=== PATIENT | female | born 1965 | race Caucasian/White ===

== ENCOUNTER 2021-03-27 08:06 | Outpatient (CLI) | payer BC, SELFPAY ==
--- NOTE | ~2021-03-27 | MM_ITS ---
EXAMINATION: MM screening [facility] BI w kennedi HISTORY: Screening mammogram TECHNIQUE: Craniocaudal and mediolateral oblique 3-D tomosynthesis images were obtained and synthetic 2-D images were generated. CAD analysis was submitted and interpreted. COMPARISON: 01/27/2019, 11/20/2017, 11/06/2016 bilateral digital screening mammogram examinations BREAST PARENCHYMAL COMPOSITION: The breasts are almost entirely fatty. FINDINGS: Stable mild asymmetric density in the superolateral right subareolar area, unchanged since 11/06/2016. Occasional bilateral benign calcifications. There is no evidence of suspicious mass, calci fication, or architectural distortion to suggest malignancy in either breast. There has been no suspi cious interval change. IMPRESSION: 1. No mammographic evidence of malignancy. 2. Recommend routine screening mammography in one year. BI-RADS Category 2: Benign finding(s). Reviewed, dictated and finalized at location A.
--- NOTE | ~2021-03-27 | DEXA_ITS ---
Bone Density Report Name: Merary Arreguin Age: 56 Sex: Female Ethnicity: White Date of : 1965 Indication: postmenopausal; hysterectomy; Referring Provider: HARRY, ELANA Johnson Study: Bone densitometry was performed. Exam Date: March 27, 2021 Accession number: [id number] Bone Density: Region BMD T-score Z-score Classification AP Spine (L1-L4) 0.979 -0.6 0.5 Normal Femoral Neck (Left) 0.756 -0.8 0.2 Normal Total Hip (Left) 0.963 0.2 0.9 Normal Total Hip Bilateral Avg 0.901 -0.3 0.3 Normal Femoral Neck (Right) 0.741 -1.0 0.1 Normal Total Hip (Right) 0.837 -0.9 -0.2 Normal World Health Organization criteria for BMD impression classify patients as: Normal (T-score at or above -1.0), Osteopenia (T-score between -1.0 and -2.5), or Osteoporosis (T-score at or below -2.5). 10-year Fracture Risk: FRAX not reported because: All T-scores for Spine Total, Hip Total, Femoral Neck at or above -1.0 Previous Exams: Region Exam Age BMD T-score BMD Change BMD Change Date g/cm2 vs Baseline vs Previous AP Spine(L1-L4) 03/27/2021 56 0.979 -0.6 0.035(3.7%)* 0.035(3.7%)* 11/06/2016 51 0.944 -0.9 Total Hip(Left) 03/27/2021 56 0.963 0.2 -0.064(-6.3%)* -0.064(-6.3%)* 11/06/2016 51 1.027 0.7 Total Hip(Right) 03/27/2021 56 0.837 -0.9 -0.079(-8.6%)* -0.079(-8.6%)* 11/06/2016 51 0.916 -0.2 *Denotes significance at 95% confidence level, LSC for AP Spine = 0.022 g/cm2, LSC for Total Hip = 0.027 g/cm2 Clinical Information Provided by Patient: Has used the following medications: Vitamin D, Calcium Has the following medical conditions: Hysterectomy Patient maximum height was 64.0 Menopause Age: 41 No regular weight bearing exercise Drinks caffeinated beverages Onset of menses at age 13 Number of children 0 Impression: The patient has normal bone mass. The BMD for the Total Hip(Left) decreased, changing by -6.3% since the last DXA exam. The BMD for the Total Hip(Right) decreased, changing by -8.6% since the last DXA exam. Discussion: BONE DENSITY IS ABOVE THE MINIMUM DESIRABLE LEVEL AT ALL SKELETAL SITES TESTED. This patient?s bone mineral density is above the minimum desirable level (T-score -1.0 or better) at all sites measured. The patient should follow a healthful lifestyle (good nutrition with adequate calcium and vitamin D, and appropriate weight-bearing exercise). Follow-Up: Consider repeating this study in 3 to 4 years to reassess this
== END 2021-03-27 08:07 | disposition home or self-care (01) ==
PROVIDERS: PCP Family Medicine; Visit Provider Family Medicine
DX: Z12.31 Encounter for screening mammogram for malignant neoplasm of breast (principal); Z78.0 Asymptomatic menopausal state
CPT/HCPCS: 77063; 77067; 77080

== ENCOUNTER 2022-07-01 07:17 | Outpatient (CLI) | payer BC, SELFPAY ==
--- NOTE | ~2022-07-01 | MM_ITS ---
EXAMINATION: MM screening [facility] BI w kennedi HISTORY: Screening TECHNIQUE: Craniocaudal and mediolateral oblique 3-D tomosynthesis images were obtained and synthetic 2-D images were generated. CAD analysis was submitted and interpreted. COMPARISON: Comparison to multiple prior studies sequentially, with oldest reviewed study dated 09/30. BREAST PARENCHYMAL COMPOSITION: There are scattered areas of fibroglandular density. FINDINGS: There is no evidence of suspicious mass, calcification, or architectural distortion to sugg est malignancy in either breast. There has been no suspicious interval change. IMPRESSION: 1. No mammographic evidence of malignancy. 2. Recommend routine screening mammography in one year. BI-RADS Category 1: Negative Reviewed, dictated and finalized at location A.
== END 2022-07-01 07:18 | disposition home or self-care (01) ==
PROVIDERS: PCP Family Medicine; Visit Provider Family Medicine
DX: Z12.31 Encounter for screening mammogram for malignant neoplasm of breast (principal)
CPT/HCPCS: 77063; 77067

== ENCOUNTER 2023-07-08 14:57 | Outpatient (CLI) | payer BC, SELFPAY ==
--- NOTE | ~2023-07-08 | MM_ITS ---
EXAMINATION: MM screening [facility] BI w kennedi HISTORY: Screening mammogram TECHNIQUE: Craniocaudal and mediolateral oblique 3-D tomosynthesis images were obtained and synthetic 2-D images were generated. CAD analysis was submitted and interpreted. COMPARISON: 07/01/2022, 03/27/2021, 01/27/2019 BREAST PARENCHYMAL COMPOSITION: The breasts are almost entirely fatty. FINDINGS: No suspicious mass, calcification, or architectural distortion are identified in either conchis ast to suggest malignancy. There has been no suspicious interval change. IMPRESSION: 1. No mammographic evidence of malignancy. 2. Recommend routine screening mammography in one year. BI-RADS Category 1: Negative Reviewed, dictated and finalized at location A.
== END 2023-07-08 14:58 | disposition home or self-care (01) ==
LOC: ANHIMG 15:00
PROVIDERS: PCP Family Medicine; Visit Provider Family Medicine
DX: Z12.31 Encounter for screening mammogram for malignant neoplasm of breast (principal)
CPT/HCPCS: 77063; 77067

== ENCOUNTER 2025-06-07 13:04 | Outpatient (CLI) | payer BC, SELFPAY ==
--- NOTE | ~2025-06-07 | DEXA_ITS ---
Bone Density Report Name: SYLVIA LOUIS Age: 60 Sex: Female Ethnicity: White Date of : 1965 Indication: postmenopausal; screening for osteoporosis; hysterectomy; Referring Provider: ELIZABETH, AISLINN Study: Bone densitometry was performed. Exam Date: June 07, 2025 Accession number: [id number] Bone Density: Region BMD T-score Z-score Classification AP Spine(L1-L4) 0.930 -1.1 0.3 Osteopenia Femoral Neck (Left) 0.727 -1.1 0.2 Osteopenia Total Hip (Left) 0.936 0.0 0.9 Normal Femoral Neck (Right) 0.799 -0.4 0.8 Normal Total Hip (Right) 0.903 -0.3 0.6 Normal Total Hip Mean 0.919 -0.2 0.8 Normal World Health Organization criteria for BMD impression classify patients as: Normal (T-score at or above -1.0), Osteopenia (T-score between -1.0 and -2.5), or Osteoporosis (T-score at or below -2.5). 10-year Fracture Risk(1): Major Osteoporotic Fracture 5.9% Hip Fracture 0.3% Reported Risk Factors: [place] (), Neck BMD=0.727, BMI=46.3 (1) FRAX(R) Version 3.08. Fracture probability calculated for an untreated patient. Fracture probability may be lower if the patient has received treatment. Previous Exams: Region Exam Age BMD T-score BMD Change BMD Change Date g/cm2 vs Baseline vs Previous AP Spine (L1-L4) 06/07/2025 60 0.930 -1.1 -0.014 (-1.5%) -0.049 (-5.0%) 03/27/2021 56 0.979 -0.6 0.035 (3.7%)* 0.035 (3.7%)* 11/06/2016 51 0.944 -0.9 Total Hip(Left) 06/07/2025 60 0.936 0.0 -0.091 (-8.8%) -0.027 (-2.8%) 03/27/2021 56 0.963 0.2 -0.064 (-6.3%) -0.064 (-6.3%) 11/06/2016 51 1.027 0.7 Total Hip(Right) 06/07/2025 60 0.903 -0.3 -0.013 (-1.5%) 0.066 (7.9%)* 03/27/2021 56 0.837 -0.9 -0.079 (-8.6%) -0.079 (-8.6%) 11/06/2016 51 0.916 -0.2 *Denotes significance at 95% confidence level, LSC for AP Spine = 0.022 g/cm2, LSC for Total Hip = 0.027 g/cm2 # Denotes dissimilar scan types or analysis methods Clinical Information Provided by Patient: Has used the following medications: Vitamin D, Calcium Has the following medical conditions: Hysterectomy Patient maximum height was 64 Menopause Age: 41 No regular weight bearing exercise Does not regularly consume dairy products Drinks caffeinated beverages Onset of menses at age 14 Number of children 0 Impression: The patient has low bone mass, based on the Total Spine T-score. The patient has an estimated ten-year risk of hip fracture of 0.3% and an estimated ten-year risk of major fracture of 5.9%, based on the WHO FRAX algorithm. No significant bone loss was observed. Discussion: BONE DENSITY IS LOW AT ONE OR MORE SKELETAL SITES. This patient's lowest T-score is low at one or more skeletal sites. It meets the World Health Organization's (WHO) criteria for ?low bone mass? (T-score between -1.0 and -2.5). The patient's 10-year risk of fracture as calculated by FRAX is less than the threshold where pharmacological therapy is recommended by the National Osteoporosis Foundation (NOF). However, all treatment decisions require clinical judgment and consideration of individual patient factors, including patient preferences, comorbidities, previous drug use, risk factors not captured in the FRAX model (e.g., frailty, falls, vitamin D deficiency, increased bone turnover, interval significant decline in bone density) and possible under or overestimation of fracture risk by FRAX. The patient should follow a healthful lifestyle (good nutrition with adequate calcium and vitamin D, and appropriate weight-bearing exercise). Follow-Up: Consider repeating this study in 2 to 3 years to reassess this patient's status, or sooner if there is some new clinical indication. Reported by: GILBERT on 06/07/2025 1:41:00 PM. Reviewed, dictated and finalized at location A.
--- OUTSIDE RECORDS SUMMARY | 2025-06-07 13:11 | XMS_ITS | Referral Summary ---
Author Organization [facility] Address [address] [place] [address] Care Team Providers Care Medical Librarian Name Role Phone Roxi Bell METAL FITTER Primary Care Provider [phone] Encounters Date Type Department Care Team Description 04/26/2025 Orders Only [facility] Internal Medicine at [address] [place] [phone] Warner Mckeon MD 04/25/2025 Orders Only [facility] Internal Medicine at [address] [place] [phone] Warner Mckeon MD 04/21/2025 Orders Only [facility] Internal Medicine at [address] [place] [phone] Warner Mckeon MD 04/13/2025 7:30 AM CDT Office Visit [facility] Internal Medicine at [address] [place] [phone] Roxi Bell, ELISHA Physical exam, annual (Primary Dx); Morbid obesity with BMI of 45.0-49.9, adult (HCC); Encounter for screening for malignant neoplasm of breast, unspecified screening modality; Breast cancer screening by mammogram; Post-menopausal; Acquired hypothyroidism; Screening for diabetes mellitus; Vitamin D deficiency; Mixed hyperlipidemia; Dry skin from Last 3 Months Allergies Active Allergy Reactions Criticality Noted Date Comments Levofloxacin Hives High Reaction: Hives, Penicillins Hives High Reaction: Hives, Sulfa (Sulfonamide Antibiotics) Headache Reaction: Headache, Medications calcium carbonate-vitam in D3 500 mg(1,250mg) -400 unit tablet Take according to [id number]-eat-[id number] r package directions 0 0 8 Active docusate sodium (STOOL SOFTENER) 250 mg capsule Take according to xyky-npr-aefwza r package directions 0 0 8 Active aspirin (ASPIRIN LOW DOSE) 81 mg tablet take 1 Tablet by oral route every day 0 0 4 Active fluticasone (FLONASE) 50 mcg/actuation nasal spray Administer 1 spray into each nostril daily Active diclofenac DR (VOLTAREN) 75 mg EC tablet Take 1 tablet (75 mg total) by mouth 3 Active metoprolol XL (Toprol XL) 50 mg extended release tablet Take 1 tablet (50 mg total) by mouth daily 90 tablet 1 5 Active levothyroxine (Synthroid) 112 mcg tablet Take 1 tablet (112 mcg total) by mouth daily 90 tablet 3 5 Active ezetimibe (Zetia) 10 mg tablet Take 1 tablet (10 mg total) by mouth daily 90 tablet 1 5 Active atorvastatin (LIPITOR) 20 mg tablet Take 1 tablet (20 mg total) by mouth daily 90 tablet 1 5 Active triamcinolone (KENALOG) 0.1 % creamIndication s:Dry skin Apply to affected area 1-2 times daily as needed. Avoid face and groin. 30 g 5 5 04/13/20 26 Active Active Problems Problem Noted Date Diagnosed Date Screening for diabetes mellitus 04/13/2025 Post-menopausal 04/13/2025 Mixed hyperlipidemia 04/13/2025 Vitamin D deficiency 04/13/2025 Coronary artery disease invo lving [place] coronary artery of [place] heart without angina pectoris 03/17/2019 Hx of CABG 03/17/2019 Pleomorphic adenoma of parotid gland 02/23/2019 Morbid obesity with BMI of 45.0-49.9, adult 08/30 Assessment & Plan (04/13/2025 7:33 AM CDT): Discussed the patient's BMI. The BMI is above average. BMI management plan is completed. BMI Follow-up includes: nutrition counseling, exercise counseling and education provided. Assessment & Plan (09/12/2021 3:26 PM CDT): Continue LT4 at current dose. Instructions to patient on taking medication properly : in the morning, on an empty stomach , 1 h part from food and/or other meds. Assessment & Plan (09/18/2020 4:05 PM CDT): Patient has lost over 40 lb Continue working on diet and exercise Assessment & Plan (09/13/2019 3:22 PM CDT): Diet and exercise discussed Assessment & Plan (09/08/2017 3:16 PM CDT): Diet and exercise were discussed. 1200 Calorie diet advised 45-60 min aerobic / resistance exercise most days of the week recommended. 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 No medication changes. Will request lab results. Assessment & Plan (09/18/2020 4:05 PM CDT): Continue levothyroxine at current dose of 112 mcg Importance of taking the medications in the morning, Lantus stomach was discussed Assessment & Plan (09/13/2019 3:22 PM CDT): Continue levothyroxine at current dose Importance of taking the medication the morning and stomach was emphasized Assessment & Plan (09/14/2018 3:26 PM CDT): Stay on current dose of Synthroid Assessment & Plan (09/08/2017 3:16 PM CDT): Check TSH, free T4 prior to next kody Continue levothyroxine at current dose. Instructions to patient on taking medication properly Immunizations Immunization Administration Dates Next Due DTaP 11/30/2005 Influenza, Unspecified 04/13/2025(Deferr ed: Patient Refused),11/30/2023(Deferred: Patient Refused) Social History Tobacco Use Types Packs/Day Years Used Date Smoking Tobacco: Never Smokeless Tobacco: Never Tobacco Cessation:Counseling Given: Not Answered Alcohol Use Standard Drinks/Week Comments No 0 (1 standard drink = 0.6 oz pur e alcohol) AUDIT-C Answer Date Recorded Q1: How often do you have a drink containing alc ohol? Monthly or less 04/13/2025 Q2: How many drinks containi ng alcohol do you have on a typical day when you are drinking? 1 or 2 04/13/2025 Q3: How often do you have si x or more drinks on one occasion? Never 04/13/2025 PHQ-2 Answer Date Recorded PHQ-2 Total Score (If total score is 3 or more points, staff should administer the PHQ-9) 0 04/13/2025 Comments No Sex and Gender Information Value Date Recorded Sex Assigned at Not on file Legal Sex Female 11:58 PM HSE MANAGER Gender Identity Female 09/16/2020 11:56 AM CDT Sexual Orientation Straight 09/16/2020 11 :56 AM CDT Last Filed Vital Signs Vital Sign Reading Time Taken Comments Blood Pressure 136/78 04/13/2025 7:28 AM CDT Pulse 68 04/13/2025 7:28 AM CDT Temperature 36.8 C (98.3 F) 04/13/2025 7:28 AM CDT Respiratory Rate 16 09/12/2021 3:07 PM CDT Oxygen Saturation 96% 04/13/2025 7:28 AM CDT Inhaled Oxygen Concentration - - Weight 123.7 kg (272 lb 9.6 oz) 04/13/2025 7:28 AM CDT Height 162.6 cm (5' 4) 04/13/2025 7:28 AM CDT Body Mass Index 46.79 04/13/2025 7:28 AM CDT Plan of Treatment Not on file Procedures Procedure Name Priority Date/Time Associated Diagnosis Comments T4, FREE Routine 03/15/2025 2:36 PM CDT TSH+FREE T4 Routine 03/15/2025 2:36 PM CDT VITAMIN D 25 HYDROXY Routine 03/15/2025 2:36 PM CDT BMP - BASIC METABOLIC PANEL (7) Routine 03/15/2025 2:35 PM CDT HEMOGLOBIN A1C Routine 03/15/2025 2:34 PM CDT TSH Routine 03/15/2025 Acquired hypothyroidism HM MAMMOGRAPHY Routine 07/08/2023 2:37 PM CDT HM COLONOSCOPY Routine 03/07/2019 2:44 PM CDT from Last 3 Months or Most Recently Relevant to Health Maintenance Results * TSH+Free T4 (03/15/2025 2:36 PM CDT) Blood [facility] Provider MD LAB BLOOD ORDERABLES Danyell l Result * Vitamin D 25 hydroxy (03/15/2025 2:36 PM CDT) SCRIBED 25-OH Vitamin D 34 <20 - >30 ng/mL [facility] Blood Result [facility] Historical Provider LAB BLOOD ORDERABLES Edit ed Result - Final Performing Organization Address City/[facility]/ZIP Co de Phone Number [facility] * T4, free (03/15/2025 2:36 PM CDT) SCRIBED T4, Free 1.5 0.8 - 1.8 mcg/dL [facility] Blood Historical Provider MD LAB BLOOD ORDERABLES Edit ed Result - Final [facility] * BMP - Basic Metabolic Panel (7) (03/15/2025 2:35 PM CDT) Historical Provider MD LAB BLOOD ORDERABLES Edit ed Result - Final [facility] * (ABNORMAL) Hemoglobin A1c (03/15/2025 2:34 PM CDT) SCRIBED Hemoglobin A1c 5.9(A) 4.0 - 5.6 % [facility] Blood Historical Provider MD LAB BLOOD ORDERABLES Edit ed Result - Final [facility] * TSH (03/15/2025) Scribed TSH 1.49 0.40 - 4.50 mcU/mL [facility] Blood 03/15/2025 Roxi Bell NP LAB BLOOD ORDERABLES Edited R esult - Final Performing Organization Address [facility]/ZIP Co de Phone Number [facility] * HM MAMMOGRAPHY (07/08/2023 2:37 PM CDT) Historical Provider HEALTH MAINTENANCE Final Result * HM COLONOSCOPY (03/07/2019 2:44 PM CDT) Historical Provider HEALTH MAINTENANCE Final Result from Last 3 Months or Most Recently Relevant to Health Maintenance Insurance [facility] BLUE ACCESS [place] BLUE ACCESS [place] Care Teams Medical Librarian Relationship Specialty Start Date End Date Roxi Bell NP [address] [place] [address] PCP - General Internal Medicine 04/13/25
--- OUTSIDE RECORDS SUMMARY | 2025-06-07 13:11 | XMS_ITS | Data Portability ---
Author Organization [place] [facility] [employer], Main Office Address [address] [place] [address] Care Team Providers Care [employer] Name Role Phone MATTI MEYER ZACHARY Primary Care Provider [phone] MATTI MEYER ZACHARY Referring Provider Assessment Encounter Date Assessment Date Assessment LastModified by Organization Details LastModified Time 12/07/2023 12/07/2023 By history and exam the patient is noted to have a left index trigger finger. We talked about treatment options today in detail she wants to avoid surgery she has not had treatment we will try a shot of cortisone therefore under sterile conditions I injected the patient's left index finger into the A1 igor site flexor tendon sheath with 2 cc 0.5% bupivacaine and 10 mg of Kenalog. Patient tolerated the procedure well. We will do a course of oral prednisone I will see her back in a month if her symptoms continue will talk further about other treatment options we talked about surgery options but we are going to try conservative measures for a while 1st of course. She voiced understanding agrees above plan she will call for any further problems difficulties or questions. While she is on the oral prednisone she will hold on diclofenac for now. Not available 12/07/2023 10:10:07 10/11/2024 10/11/2024 The patient has 2 trigger fingers of the right hand when his index finger the other is the ring finger. Talked about treatment options today in detail we are going to start with a course of oral prednisone and also shots of cortisone. At her request under sterile conditions I injected the A1 igor sites into the flexor tendon sheaths of the right index and right ring fingers. The patient tolerated procedure well. I used 2 cc 0.5% bupivacaine and 10 mg of Kenalog for each injection. She will take the course of oral prednisone hold on that diclofenac while she is on the prednisone. I will see her back in 6 weeks if necessary if her symptoms continue we could repeat the injections or talk about surgical intervention. She did very well with treatment with her left hand hopefully she will get the same benefit on the right today. She voiced understanding and agreed with the above plan she will call for any further problems difficulties or questions. Not available 10/11/2024 16:04:14 05/15/2025 05/15/2025 The patient has right hand 2nd and 4th trigger fingers in the left hand has 2nd trigger finger as well. She has flexor tenosynovitis of all 3 sites. We talked about treatment options today she wanted proceed with cortisone therefore under sterile conditions I injected the patient's bilateral index fingers and the right ring finger in the office today into the flexor tendon sheath at the A1 igor sites with 2 cc of 0.5% bupivacaine and 10 mg of Kenalog each for a total of 3 injections. The patient tolerated all 3 injections well. We will give her a course of oral prednisone she will hold on her diclofenac while she is on that then resume. We talked about the fact that if this continues the best way to get rid of it completely would be surgical intervention with trigger finger releases all 3 sites. We will see how she does I will see her back as needed if her symptoms continue she will call she voiced understanding and agreed with the above plan. Not available 05/15/2025 10:24:32 Plan of Treatment Reminders Order Date Submit Date Provider Last Modified By Organization Details Last Modified Time Details Appointments Any 5 2024 08:00A EKTA Wilkerson Not available Not available Not available Lab HbA1c (hemoglob in A1c), blood 2023 025 BREANNE Not available 03/16/2025 05:41:58 BMP, serum or plasma 2023 025 BREANNE Not available 02/28/2025 03:03:00 vitamin D, 25-hydrox y, total, serum 2023 025 BREANNE Not available 03/16/2025 05:41:57 BMP, serum or plasma 2023 025 BREANNE Not available 03/16/2025 05:41:52 lipid panel, serum 2023 025 BREANNE Not available 03/16/2025 05:41:51 hepatic function panel, serum 2023 025 BREANNE Not available 03/16/2025 05:41:53 TSH, serum or plasma 2023 024 BREANNE Not available 03/15/2024 10:55:36 T4, free, serum 2023 024 BREANNE Not available 03/15/2024 10:55:35 TSH, serum or plasma 2023 025 BREANNE Not available 03/16/2025 05:41:56 T4, free, serum 2023 025 BREANNE Not available 03/16/2025 05:41:55 Referral None recorded. Procedures injection /aspirati on joint/bur sa (PROC) 2024 025 [email or web address] In-Office Order, Internal Use Only DO Not Attach Compendium DO Not Attach Compendium, Do Not Delete/merge, [id number] 05/15/2025 09:35:40 injection /aspirati on joint/bur sa (PROC) 2024 025 [email or web address] In-Office Order, Internal Use Only DO Not Attach Compendium DO Not Attach Compendium, Do Not Delete/merge, [id number] 05/15/2025 09:35:40 injection /aspirati on joint/bur sa (PROC) 2024 025 [email or web address] In-Office Order, Internal Use Only DO Not Attach Compendium DO Not Attach Compendium, Do Not Delete/merge, 05/15/2025 09:35:40 injection /aspirati on joint/bur sa (PROC) 2023 024 [email or web address] In-Office Order, Internal Use Only DO Not Attach Compendium DO Not Attach Compendium, Do Not Delete/merge, [id number] 10/11/2024 15:54:34 injection /aspirati on joint/bur sa (PROC) 2023 024 [email or web address] In-Office Order, Internal Use Only DO Not Attach Compendium DO Not Attach Compendium, Do Not Delete/merge, [id number] 10/11/2024 15:54:35 injection /aspirati on joint/bur sa (PROC) 2023 024 In-Office Order, Internal Use Only DO Not Attach Compendium DO Not Attach Compendium, Do Not Delete/merge, [id number] 12/07/2023 10:08:29 Surgeries None recorded. Imaging XR, hand 2024 025 [facility] [place], [address], [place], [address], 05/15/2025 10:25:14 XR, hand 2023 024 [facility] [place], [address], [place], [address], 10/11/2024 16:04:56 XR, hand 2023 024 [facility] [place], [address], [place], [address], 12/07/2023 11:51:52 Medication Orders bupivacai ne HCl 0.5 % (5 mg/mL) injection solution 2024 025 [facility], [address] [place], [address], 05/15/2025 10:18:14 Kenalog 10 mg/mL suspensio n for injection 2024 025 [facility], [address] [place], [address], 05/15/2025 10:18:14 bupivacai ne HCl 0.5 % (5 mg/mL) injection solution [address] [place] [address]/Pharmacy #2510, [address] [place] [address], [id number], 05/15/2025 10:18:14 Kenalog 10 mg/mL suspensio n for injection [address] [place] [address]/Pharmacy #2510, [address] [place] [address], [address], 05/15/2025 10:18:14 prednison e 10 mg tablets in a dose pack [address] [place] [address]/Pharmacy #2510, [address] [place] [address], [id number], 05/15/2025 10:18:14 bupivacai ne HCl 0.5 % (5 mg/mL) injection solution [address] [place] [address]/Pharmacy #2510, [address] [place] [address], [address], 05/15/2025 10:18:14 Kenalog 10 mg/mL suspensio n for injection [address] [place] [address]/Pharmacy #2510, [address] [place] [address], [id number], 05/15/2025 10:18:14 neomycin- polymyxin -dexameth 3.5 mg/mL-10, 000 unit/mL-0 .1% eye drops 2024 025 [email or web address] [facility], [address] [place] [address], [address], 05/15/2025 09:25:12 Zithromax Z-Brooks 250 mg tablet 2024 025 BREANNE [facility]10, [address] [place] [address], [id number], 12/29/2024 17:07:52 bupivacai ne HCl 0.5 % (5 mg/mL) injection solution 2023 [facility], [address] [place] [address], [id number], 05/15/2025 09:24:49 Kenalog 10 mg/mL suspensio n for injection [address]/Pharmacy #2510, [address] [place] [address], [address], 05/15/2025 09:24:55 bupivacai ne HCl 0.5 % (5 mg/mL) injection solution [address]/Pharmacy #2510, [address] [place] [address], [address], 05/15/2025 09:24:49 Kenalog 10 mg/mL suspensio n for injection [address]/Pharmacy #2510, [address] [place] [address], [address], 05/15/2025 09:24:55 prednison e 10 mg tablets in a dose pack [address]/Pharmacy #2510, [address] [place] [address], [address], 05/15/2025 09:25:33 bupivacai ne HCl 0.5 % (5 mg/mL) injection solution [address]/Pharmacy #2510, [address] [place] [address], [address], 05/15/2025 09:24:49 Kenalog 10 mg/mL suspensio n for injection 2023 [email or web address] [address] [place] [address], [address], 05/15/2025 09:24:55 prednison e 10 mg tablets in a dose pack 2023 024 [email or web address] [facility]4918, [address] [place], [address], 05/15/2025 09:25:33 Patient TargetsNo targets recorded. Patient InstructionsNo instructions recorded. Reason for Referral None Reported. Results Created Date Observation Date Name Description Value Unit Range Abnormal Flag Note LastModifiedBy Organization Detail LastModifiedTime 01/12/20 24 01/13/2024 LIPID PANEL , STAND DIANA cholesterol, total 173 mg/dL <200 normal Not Available [address], [address], 01/13/2024 03:23:22 01/12/20 24 01/13/2024 LIPID PANEL , STAND DIANA HDL cholesterol 55 mg/dL > or = 50 normal Not Available [address], [address], 01/13/2024 03:23:22 01/12/20 24 01/13/2024 LIPID PANEL , STAND DIANA triglyceride s 183 mg/dL <150 high Not Available [employer] [address], [address], 01/13/2024 03:23:22 01/12/20 24 01/13/2024 LIPID PANEL , STAND DIANA LDL-choleste rol 90 mg/dL _(wilber c) normal Refer ence range : <100 Zain able range <100 mg/dL for prima ry preve ntion ; <70 mg/dL for patie nts with CHD or diabe tic patie nts with > or = 2 CHD risk facto rs. LDL-C is now calcu lated using the Holly n-Hop romina syed, which is a valid ated novel william moffett accur acy than the [employer] [place] equat ion in the estim ation of LDL-C . Holly syed SS et al. FRANCISCO. 2013; 310(1 9): 2061- 2068 (http ://ed ucati on.Qu estDi agnos tics. com/f aq/FA Q164) Not Available [address] [place], [address], 01/13/2024 03:23:22 01/12/20 24 01/13/2024 LIPID PANEL , STAND DIANA chol/HDLC ratio 3.1 (calc ) <5.0 normal Not Available [address], [address], 01/13/2024 03:23:22 01/12/20 24 01/13/2024 LIPID PANEL , STAND DIANA non HDL cholesterol 118 mg/dL _(wilber c) <130 normal For patie nts with diabe juan plus 1 major ASCVD risk facto r, treat ing to a non-H DL-C goal of <100 mg/dL (LDL- C of <70 mg/dL ) is consi dered a thera peuti c optio n. Not Available [address], [address], 01/13/2024 03:23:22 01/12/20 24 01/13/2024 BASIC METAB OLIC PANEL glucose 92 mg/dL 65-99 normal Fasti ng refer ence inter fish Not Available [address], [address], 01/13/2024 03:23:22 01/12/20 24 01/13/2024 BASIC METAB OLIC PANEL urea nitrogen (BUN) 15 mg/dL 7-25 normal Not Available [address], [address], 01/13/2024 03:23:22 01/12/20 24 01/13/2024 BASIC METAB OLIC PANEL creatinine 0.93 mg/dL 0.50-1 .03 normal Not Available [address] [address] [place], [address], 01/13/2024 03:23:22 01/12/20 24 01/13/2024 BASIC METAB OLIC PANEL eGFR 71 mL/mi n/1.7 3m2 > or = 60 normal Not Available [address] [place], [address], 01/13/2024 03:23:22 01/12/20 24 01/13/2024 BASIC METAB OLIC PANEL BUN/creatini ne ratio SEE NOTE: (calc ) 6-22 Not Repor zaina: BUN and Creat inine are withi n refer ence range . Not Available [address] [place], [address], 01/13/2024 03:23:22 01/12/20 24 01/13/2024 BASIC METAB OLIC PANEL sodium 140 mmol/ L 135-14 6 normal Not Available [address] [address] [place], [address], 01/13/2024 03:23:22 01/12/20 24 01/13/2024 BASIC METAB OLIC PANEL potassium 4.3 mmol/ L 3.5-5. 3 normal Not Available [address] [address] [place], [address], 01/13/2024 03:23:22 01/12/20 24 01/13/2024 BASIC METAB OLIC PANEL chloride 105 mmol/ L 98-110 normal Not Available [address] [address] [place], [address], 01/13/2024 03:23:22 01/12/20 24 01/13/2024 BASIC METAB OLIC PANEL carbon dioxide 30 mmol/ L 20-32 normal Not Available [address] [address] [place], [address], 01/13/2024 03:23:22 01/12/20 24 01/13/2024 BASIC METAB OLIC PANEL calcium 9.3 mg/dL 8.6-10 .4 normal Not Available [address] [address] [place], [address], 01/13/2024 03:23:22 01/12/20 24 01/13/2024 HEPAT IC FUNCT ION PANEL protein, total 6.1 g/dL 6.1-8. 1 normal Not Available [address], [address], 01/13/2024 03:23:23 01/12/20 24 01/13/2024 HEPAT IC FUNCT ION PANEL albumin 3.7 g/dL 3.6-5. 1 normal Not Available [address], [address], 01/13/2024 03:23:23 01/12/20 24 01/13/2024 HEPAT IC FUNCT ION PANEL globulin 2.4 g/dL_ (calc ) 1.9-3. 7 normal Not Available [address], [address], 01/13/2024 03:23:23 01/12/20 24 01/13/2024 HEPAT IC FUNCT ION PANEL albumin/glob ulin ratio 1.5 (calc ) 1.0-2. 5 normal Not Available [address], [address], 01/13/2024 03:23:23 01/12/20 24 01/13/2024 HEPAT IC FUNCT ION PANEL bilirubin, total 0.4 mg/dL 0.2-1. 2 normal Not Available [address], [address], 01/13/2024 03:23:23 01/12/20 24 01/13/2024 HEPAT IC FUNCT ION PANEL bilirubin, direct 0.1 mg/dL < or = 0.2 normal Not Available [address], [address], 01/13/2024 03:23:23 01/12/20 24 01/13/2024 HEPAT IC FUNCT ION PANEL bilirubin, indirect 0.3 mg/dL _(wilber c) 0.2-1. 2 normal Not Available [address], [address], 01/13/2024 03:23:23 01/12/20 24 01/13/2024 HEPAT IC FUNCT ION PANEL alkaline phosphatase 65 U/L 37-153 normal Not Available [facility] [employer] [address], [address], 01/13/2024 03:23:23 01/12/20 24 01/13/2024 HEPAT IC FUNCT ION PANEL AST 15 U/L 10-35 normal Not Available [address], [address], 01/13/2024 03:23:23 01/12/20 24 01/13/2024 HEPAT IC FUNCT ION PANEL ALT 14 U/L 6-29 normal Not Available [address], [address], 01/13/2024 03:23:23 01/12/20 24 01/13/2024 T4, FREE T4, free 1.3 NG/dL 0.8-1. 8 normal Not Available [address], [address], 01/13/2024 03:23:23 01/12/20 24 01/13/2024 TSH TSH 1.85 mIU/L 0.40-4 .50 normal Not Available [address], [address], 01/13/2024 03:23:24 01/12/20 24 01/13/2024 VITAM IN D,25- OH,TO ELLA,I A vitamin D,25-oh,tota l,ia 37 NG/mL 30-100 normal Vitam in D Statu s 25-OH Vitam in D: Defic iency : <20 ng/mL Insuf ficie ncy: 20 - 29 ng/mL Optim al: > or = 30 ng/mL For 25-OH Vitam in D testi ng on patie nts on D2-valiente pplem entat ion and patie nts for whom quant itati on of D2 and D3 fract ions is requi red, the Quest Assur eD(TM ) 25-OH VIT D, (D2,D 3), LC/MS /MS is recom truong d: order code 20957 (raven ents >2yrs ). See Note 1 Note 1 For addit ional infor viv le refer to http: //[facility] Hobbs stDia gnost ics.c om/fa q/FAQ 199 (This link is being provi ded for infor isidro patrick/ educgentry loomis purpo ses only. ) Not Available [employer] [facility] [address] [place], [address], 01/13/2024 03:23:24 01/12/20 24 01/13/2024 HEMOG LOBIN A1C hemoglobin A1C 5.5 %_of_ total _HGB <5.7 normal For the purpo se of scremckay brang for the prese nce of diabe juan: <5.7% Consi stent with the absen ce of diabe juan 5.7-6 .4% Consi stent with incre ased risk for diabe juan (pred iabet es) > or =6.5% Consi stent with diabe juan This assay resul t is consi stent with a decre ased risk of diabe juan. Curre ntly, no conse nsus exist s gena johnson use of hemog lobin A1c for diagn osis of diabe juan in child david. Accor ding to Ameri can Diabe juan Assoc iatio n (ADA) guide lines , hemog lobin A1c <7.0% repre sents optim al contr ol in non-p regna nt diabe tic patie nts. Diffe rent ri cs may apply to speci fic patie nt popul ation s. Stand ards of Medic al Care in Diabe juan(A DA). HbA1c perfo rmed on Abbot t platf orm. Not Available [employer] [facility] [address] [place], [address], 01/13/2024 03:23:25 03/14/20 24 03/15/2024 T4, FREE T4, free 1.3 NG/dL 0.8-1. 8 normal Not Available [address], [address], 03/15/2024 10:55:35 03/14/20 24 03/15/2024 TSH TSH 1.25 mIU/L 0.40-4 .50 normal Not Available [address], [address], 03/15/2024 10:55:36 03/15/20 25 03/16/2025 LIPID PANEL , STAND DIANA cholesterol, total 173 mg/dL <200 normal Not Available [address], [address], 03/16/2025 05:41:51 03/15/20 25 03/16/2025 LIPID PANEL , STAND DIANA HDL cholesterol 54 mg/dL > or = 50 normal Not Available [address], [address], 03/16/2025 05:41:51 03/15/20 25 03/16/2025 LIPID PANEL , STAND DIANA triglyceride s 122 mg/dL <150 normal Not Available [address], [address], 03/16/2025 05:41:51 03/15/2003/16/2025 LIPID PANEL , STAND DIANA LDL-choleste rol 97 mg/dL _(wilber c) normal Refer ence range : <100 Zain able range <100 mg/dL for prima ry preve ntion ; <70 mg/dL for patie nts with CHD or diabe tic patie nts with > or = 2 CHD risk facto rs. LDL-C is now calcu lated using the Holly n-Hop romina syed, which is a valid ated novel matiaso flo moffett accur acy than the [employer] [place] equat ion in the estim ation of LDL-C . Holly n SS et al. FRANCISCO. 2013; 310(1 9): 2061- 2068 (http ://ed ucati on.Qu bubbaShelby jonoRewardLoop. com/f aq/FA Q164) Not Available [address], [address], 03/16/2025 05:41:51 03/15/2003/16/2025 LIPID PANEL , STAND DIANA chol/HDLC ratio 3.2 (calc ) <5.0 normal Not Available [address], [address], 03/16/2025 05:41:51 03/15/2003/16/2025 LIPID PANEL , STAND DIANA non HDL cholesterol 119 mg/dL _(wilber c) <130 normal For patie nts with diabe juan plus 1 major ASCVD risk facto r, treat ing to a non-H DL-C goal of <100 mg/dL (LDL- C of <70 mg/dL ) is consi donna a stefani sparrowo n. Not Available [address], [address], 03/16/2025 05:41:51 03/15/2003/16/2025 BASIC METAB OLIC PANEL glucose 99 mg/dL 65-99 normal Fasti ng refer ence inter fish Not Available [address], [address], 03/16/2025 05:41:52 03/15/2003/16/2025 BASIC METAB OLIC PANEL urea nitrogen (BUN) 16 mg/dL 7-25 normal Not Available [address], [address], 03/16/2025 05:41:52 03/15/20 25 03/16/2025 BASIC METAB OLIC PANEL creatinine 0.92 mg/dL 0.50-1 .03 normal Not Available [address] [address] [place], [address], 03/16/2025 05:41:52 03/15/2003/16/2025 BASIC METAB OLIC PANEL eGFR 72 mL/mi n/1.7 3m2 > or = 60 normal Not Available [address] [address] [place], [address], 03/16/2025 05:41:52 03/15/20 25 03/16/2025 BASIC METAB OLIC PANEL BUN/creatini ne ratio SEE NOTE: (calc ) 6-22 Not Repor zaina: BUN and Creat inine are withi n refer ence range . Not Available [address], [address], 03/16/2025 05:41:52 03/15/20 25 03/16/2025 BASIC METAB OLIC PANEL sodium 142 mmol/ L 135-14 6 normal Not Available [address] [address] [place], [address], 03/16/2025 05:41:52 03/15/2003/16/2025 BASIC METAB OLIC PANEL potassium 4.5 mmol/ L 3.5-5. 3 normal Not Available [address], [address], 03/16/2025 05:41:52 03/15/2003/16/2025 BASIC METAB OLIC PANEL chloride 105 mmol/ L 98-110 normal Not Available [address] [address] [place], [address], 03/16/2025 05:41:52 03/15/20 25 03/16/2025 BASIC METAB OLIC PANEL carbon dioxide 30 mmol/ L 20-32 normal Not Available [address] [address] [place], [address], 03/16/2025 05:41:52 03/15/20 25 03/16/2025 BASIC METAB OLIC PANEL calcium 9.4 mg/dL 8.6-10 .4 normal Not Available [address], [address], 03/16/2025 05:41:52 03/15/20 25 03/16/2025 HEPAT IC FUNCT ION PANEL protein, total 6.7 g/dL 6.1-8. 1 normal Not Available [address], [address], 03/16/2025 05:41:53 03/15/20 25 03/16/2025 HEPAT IC FUNCT ION PANEL albumin 4.0 g/dL 3.6-5. 1 normal Not Available [address], [address], 03/16/2025 05:41:53 03/15/20 25 03/16/2025 HEPAT IC FUNCT ION PANEL globulin 2.7 g/dL_ (calc ) 1.9-3. 7 normal Not Available [address], [address], 03/16/2025 05:41:53 03/15/20 25 03/16/2025 HEPAT IC FUNCT ION PANEL albumin/glob ulin ratio 1.5 (calc ) 1.0-2. 5 normal Not Available [address], [address], 03/16/2025 05:41:53 03/15/20 25 03/16/2025 HEPAT IC FUNCT ION PANEL bilirubin, total 0.5 mg/dL 0.2-1. 2 normal Not Available [address], [address], 03/16/2025 05:41:53 03/15/20 25 03/16/2025 HEPAT IC FUNCT ION PANEL bilirubin, direct 0.1 mg/dL < or = 0.2 normal Not Available [address], [address], 03/16/2025 05:41:53 03/15/20 25 03/16/2025 HEPAT IC FUNCT ION PANEL bilirubin, indirect 0.4 mg/dL _(wilber c) 0.2-1. 2 normal Not Available [address], [address], 03/16/2025 05:41:53 03/15/20 25 03/16/2025 HEPAT IC FUNCT ION PANEL alkaline phosphatase 80 U/L 37-153 normal Not Available [facility] [employer] [address], [address], 03/16/2025 05:41:53 03/15/20 25 03/16/2025 HEPAT IC FUNCT ION PANEL AST 18 U/L 10-35 normal Not Available [address], [address], 03/16/2025 05:41:53 03/15/20 25 03/16/2025 HEPAT IC FUNCT ION PANEL ALT 13 U/L 6-29 normal Not Available [address], [address], 03/16/2025 05:41:53 03/15/20 25 03/16/2025 T4, FREE T4, free 1.5 NG/dL 0.8-1. 8 normal Not Available [address], [address], 03/16/2025 05:41:54 03/15/20 25 03/16/2025 TSH TSH 1.49 mIU/L 0.40-4 .50 normal Not Available [address], [address], 03/16/2025 05:41:56 03/15/20 25 03/16/2025 VITAM IN D,25- OH,TO ELLA,I A vitamin D,25-oh,tota l,ia 34 NG/mL 30-100 normal Vitam in D Statu s 25-OH Vitam in D: Defic iency : <20 ng/mL Insuf ficie ncy: 20 - 29 ng/mL Optim al: > or = 30 ng/mL For 25-OH Vitam in D testi ng on patie nts on D2-valiente pplem entat ion and patie nts for whom quant itati on of D2 and D3 fract ions is requi red, the Quest Assur eD(TM ) 25-OH VIT D, (D2,D 3), LC/MS /MS is recom truong d: order code 55854 (raven ents >2yrs ). See Note 1 Note 1 For addit ional infor viv le refer to http: //[facility] syed.Que stDia gnost ics.c om/fa q/FAQ 199 (This link is being provi ded for infor isidro patrick/ amy loomis purpo ses only. ) Not Available [employer] [facility] [address] [place], [address], 03/16/2025 05:41:57 03/15/20 25 03/16/2025 HEMOG LOBIN A1C hemoglobin A1C 5.9 %_of_ total _HGB <5.7 high For someo ne witho ut known diabe juan, a hemog lobin A1c value betwe en 5.7% and 6.4% is consi stent with predi abete s and shoul d be confi rmed with a follo w-up test. For someo ne with known diabe juan, a value <7% indic ates that their diabe juan is well contr olled . A1c targe ts shoul d be indiv idual ized based on durat ion of diabe juan, age, comor bid condi tions , and other consi derat ions. This assay resul t is consi stent with an incre ased risk of diabe juan. Curre ntly, no conse nsus exist s regar ding use of hemog lobin A1c for diagn osis of diabe juan for child david. Not Available [employer] [facility] [address] [place], [address], 03/16/2025 05:41:58 12/07/19 24 XR, hand No observ ation record ed. [facility] [place] [address], [place], [address], 12/07/2023 10:08:31 10/11/20 24 XR, hand No observ ation record ed. [facility] [place] [address], [place], [address], 10/11/2024 16:04:54 05/15/20 25 XR, hand No observ ation record ed. [facility] [place] [address], [place], [address], 05/15/2025 10:25:13 Result Notes None recorded. Problems Name Problem SNOMED Code Status Onset Date Resolution Date Notes Provider Name and Address Organization Details Recorded Time Acute bronchitis 25786232 Active Not Available [facility] 3 05:56:54 Acquired trigger finger 6770153 Active Not Available [facility] 3 05:56:54 Radial styloid tenosynovi tis 24987229 Active Not Available [facility] 3 05:56:54 Gastroesop hageal reflux disease 079641958 Active Not Available [facility] 3 05:56:54 Pleomorphi c adenoma of parotid gland 316470758 Active 2016 Not Available [facility] 3 05:56:54 Low back pain 454790319 Active Not Available [facility] 3 05:56:54 Knee pain Active Not Available [facility] 3 05:56:54 Vitamin D deficiency 86759540 Active Not Available [facility] 3 05:56:54 Generalize d atheroscle rosis 85559697 Active Not Available [facility] [facility] 05:56:54 Hypothyroi dism 35497260 Active Not Available [facility] 3 05:56:54 Obesity 859736897 Active Not Available [facility] 3 05:56:54 Sprain of foot 33263968 Active Not Available [facility] 3 05:56:55 Coronary arterioscl erosis 45453844 Active Not Available [facility] 3 05:56:55 Upper respirator y infection 96657934 Active Not Available [facility] 3 05:56:55 Hyperlipid emia 44347991 Active Not Available [facility] 3 05:56:55 Carpal tunnel syndrome 09035584 Active Not Available [facility] 3 05:56:55 Obstructiv e sleep apnea syndrome 15673491 Active 2016 Not Available [facility] 3 05:56:55 Hyperglyce arsalan 42332147 Active Not Available [facility] 3 05:56:55 Tinnitus of right ear 1483007781271 Active 2022 Vianney Foster MD [address], [address], [place], [address] , [facility] 3 13:42:23 Pain of left hand 8674825720920 03 Active 2023 Rasheeda Mccollum CNA null, [place] [facility] 4 09:25:43 Acquired trigger finger of left index finger 0395364343448 04 Active 2023 Lena Bakers null, [place] [facility] 4 10:05:38 Allergic rhinitis 66447585 Active 2023 MATTI Garcia [address], [address], [place], [address] , [facility] 4 23:41:56 Pain in right hand 4336841718993 09 Active 2023 Rasheeda Mccollum CNA null, [place] [facility] 4 15:33:24 Acquired trigger finger of right index finger 3443204848565 Active 2023 Lena french, [place] [facility] 4 15:50:58 Acquired trigger finger of right ring finger 8483030380872 08 Active 2023 eLna french, [place] [facility] 4 15:51:17 Acute upper respirator y infection 63427205 Active 2024 MATTI Garcia [address] [address], [place], [address] , [facility] [employer] [facility] 5 17:07:25 Acute conjunctiv itis 87505275 Active 2024 MATTI Garcia [address] [address], [place], [address] , [facility] [employer] [facility] 5 17:08:15 Acute sinusitis 42727779 Active 2024 MATTI Garcia [address], [place], [address] , [facility] [employer] [facility] 5 10:02:00 Problem Notes None recorded. Procedures Surgical History Date Name Laterality Status Provider Name and Address Organization Details Recorded Time Breast reduction completed Rasheeda jimenez [employer] [place] [facility] [employer] [facility] 12/07/2023 09:18:49 salpingo-oophorecto my completed Rasheeda Mccollum [employer] [place] [employer] [facility] 12/07/2023 09:19:44 cholecystectomy completed Rasheeda ramirez [facility] [employer] [facility] 12/07/2023 09:20:00 Partial hysterectomy completed Rasheeda Mccollum [employer] [place] [employer] [facility] 12/07/2023 09:20:15 CABG completed Rasheeda Mccollum [facility] [place] [employer] [facility] 12/07/2023 09:20:37 salpingo-oophorecto my completed Rasheeda Mccollum [facility] [place] [employer] [facility] 12/07/2023 09:21:11 Appendectomy completed Rasheeda Mccollum [employer] [place] [employer] [facility] 12/07/2023 09:21:29 Shoulder completed Rasheeda Mccollum CNA [place] [facility] [place] [employer] [facility] 12/07/2023 09:22:28 Carpal tunnel surgery completed COREY Arteaga [place] [employer] [facility] 12/07/2023 09:23:14 Imaging Results None recorded. Procedure Notes None recorded. Medical Equipment None Reported. Allergies Allergen ID Allergen Name Allergen Category Reaction Reaction Severity Criticality Documentation Date Start Date Code Code System Note Provider Name and Address Organization Details Recorded Time 53882 Substance with sulfonami de structure and antibacte rial mechanism of action (substanc e) medicatio n headache Not available Not available 01/28/2023 18635 8003 SNOMED Not Available [facility] 3 06:02:42 16472 Product containin g penicilli n (product) medicatio n hives Not available Not available 01/28/2023 29908 8001 SNOMED Not Available [facility] 3 06:02:42 22785 Levaquin medicatio n hives Not available Not available 01/28/2023 10040 2 RxNorm Not Available [facility] 3 06:02:42 Medications Name Sig Start Date Stop Date Status Note LastModified by Organization Details LastModified Time prednisone 10 mg tablet TAKE 1 TAB BY MOUTH 3 TIMES A DAY X3DAYS, 1 TAB 2 TIMES A DAY X2DAYS, 1 TAB ONCE X1DAY active Not Available Not Available No t Available doxycycline hyclate 100 mg capsule TAKE 1 CAPSULE BY MOUTH EVERY 12 HOURS FOR 10 DAYS 01/21 completed Not Available Not Available Not Available atorvastati n 20 mg tablet TAKE 1 TABLET BY MOUTH EVERY DAY active Not Available Not Available No t Available clindamycin HCl 300 mg capsule 04/07 completed Not Available Not Available Not Available azithromyci n 250 mg tablet TAKE 2 TABLETS BY MOUTH TODAY, THEN TAKE 1 TABLET DAILY FOR 4 DAYS DIRECTED active Not Available Not Available No t Available benzonatate 200 mg capsule active Not Available Not Available Not Available metoprolol succinate ER 50 mg tablet,exte nded release 24 hr TAKE 1 TABLET BY MOUTH EVERY DAY active Not Available Not Available No t Available valacyclovi r 1 gram tablet Take 1 tablet every 12 hours by oral route for 7 days. active Not Available Not Available No t Available hydrocodone 5 mg-acetamin ophen 325 mg tablet Take by oral route for 5 days. 04/07 completed Not Available Not Available Not Available Celestone Soluspan 6 mg/mL suspension for injection active Not Available Not Available No t Available bupivacaine HCl 0.5 % (5 mg/mL) injection solution Take 10 mg by injection route. 2024 active Not Available Not Available Not Avai lable prednisone 20 mg tablet TAKE 2 TABLETS BY MOUTH EVERY DAY FOR 5 DAYS 01/21 completed Not Available Not Available Not Available clindamycin HCl 150 mg capsule 04/07 completed Not Available Not Available Not Available acetaminoph en 300 mg-codeine 30 mg tablet 1 po q6 hours prn pain active Not Available Not Available No t Available aspirin 81 mg tablet,farhan yed release Take 1 tablet every day by oral route as directed. 2019 active Not Available Not Available Not Avai lable triamcinolo ne acetonide 0.1 % topical cream APPLY TO AFFECTED AREA 1-2 TIMES DAILY NEEDED. AVOID FACE AND GROIN. active Not Available Not Available No t Available prednisone 10 mg tablets in a dose pack Take 1 tab by mouth, 3 times a day for 3 daysTake 1 tab by mouth 2 times a day for 2 daysTake 1 tab by mouth once a day for 1 day 2024 active Not Available Not Available Not Avai lable Kenalog 10 mg/mL suspension for injection Take 10 mg by injection route. 2024 active [facility]: 0003- [phone]- 20 Not Available Not Available Not Available neomycin-po lymyxin-dex ameth 3.5 mg/mL-10,00 0 unit/mL-0.1 % eye drops INSTILL 1 DROP INTO AFFECTED EYE(S) BY OPHTHALMI C ROUTE EVERY 3 HOURS. MAX DAILY: 6 DOSES 05/15 completed Not Available Not Available Not Available polymyxin B sulfate 10,000 unit-trimet hoprim 1 mg/mL eye drops INSTILL 1 DROP INTO AFFECTED EYE(S) BY OPHTHALMI C ROUTE EVERY 6 HOURS x 7 days active Not Available Not Available No t Available diclofenac sodium 75 mg tablet,farhan yed release TAKE 1 TABLET BY MOUTH TWICE A DAY WITH FOOD active Not Available Not Available No t Available methylpredn isolone 4 mg tablets in a dose pack 01/19 completed Not Available Not Available Not Available fluticasone propionate 50 mcg/actuati on nasal spray,suspe nsion SPRAY 1 SPRAY INTO EACH NOSTRIL EVERY DAY active Not Available Not Available No t Available doxycycline hyclate 100 mg tablet Take 1 tablet twice a day by oral route for 7 days. active Not Available Not Available No t Available Rocephin 500 mg solution for injection active Not Available Not Available No t Available levothyroxi ne 112 mcg tablet TAKE 1 TABLET BY MOUTH EVERY DAY active Not Available Not Available No t Available neomycin 3.5 mg/g-polymy kelli B 10,000 unit/g-dexa meth 0.1 % eye oint APPLY TO LOWER LID OF AFFECTED EYE(S) THREE TIMES DAILY FOR 5 DAYS active Not Available Not Available No t Available ezetimibe 10 mg tablet TAKE 1 TABLET BY MOUTH EVERY DAY active Not Available Not Available No t Available Stool Softener 200mg one a day 03/14 completed Not Available Not Available Not Available multivitami n 1 tab daily 11/15 completed Not Available Not Available Not Available Calcium 600 + D(3) 2 x's daily 2019 active Not Available Not Available Not Avai lable ProAir HFA 90 mcg/actuati on aerosol inhaler INHALE 2 PUFFS EVERY 4 TO 6 HOURS HOURS NEEDED FOR COUGH active Not Available Not Available No t Available One-A-Day Women's 50 Plus one tablet a day 05/15 completed Not Available Not Available Not Available Clenpiq 10 mg-3.5 gram-12 gram/160 mL oral solution 01/19 completed Not Available Not Available Not Available Vitals Date Recorded Body height Body mass index (BMI) Body weight Provider Name and Address Organization Details Last Updated DateTime 12/07/2023 160.02 cm 46.8 kg/m2 997590.82 g Rasheeda Mccollum CNA [place] [facility] [employer] [facility] 12/07/2023 09:14:32 Date Recorded Body height Body mass index (BMI) Body weight Body temperature Heart rate Oxygen saturation Oxygen saturation in Arterial blood by Pulse oximetry Systolic And Diastolic Provider Name and Address Organization Details Last Updated DateTime 162.56 cm 46.9 kg/m2 569726. 72 g 96.2 [degF] 75 /min 98 % 98 % 136/80 mm[Hg] Olga Lidia Long RN [facility] [employer] [facility] 16:57:17 Date Recorded Body height Body mass index (BMI) Body weight Body temperature Heart rate Oxygen saturation Oxygen saturation in Arterial blood by Pulse oximetry Systolic And Diastolic Provider Name and Address Organization Details Last Updated DateTime 160.02 cm 47.5 kg/m2 974333. 76 g 98 [degF] 64 /min 98 % 98 % 134/80 mm[Hg] Olga Lidia Long RN [facility] [employer] [facility] 4 15:27:08 Date Recorded Body height Body mass index (BMI) Body weight Provider Name and Address Organization Details Last Updated DateTime 05/15/2025 162.56 cm 46.2 kg/m2 670312.35 g Rasheeda Mccollum CNA [facility] [employer] [facility] [employer] 05/15/2025 09:23:58 Date Recorded Body height Body mass index (BMI) Body weight Provider Name and Address Organization Details Last Updated DateTime 10/11/2024 162.56 cm 46.3 kg/m2 620607.94 g Rasheeda Mccollum [employer] [facility] [employer] [facility] [employer] 10/11/2024 15:32:53 Social History Question Answer Notes LastModified by [employer] Details LastModified Time Tobacco Smoking Status Never Smoker Not Available [facility] 01/28/2023 05:53:00 What Was The Date Of Your Most Recent Tobacco Screening? 03/14/2024 [email or web address] Information not available 03/14/2024 Sex: Unknown Functional Status Question Answer Note LastModified by [employer] Details LastModified Time What is your level of alcohol consumption? Occasional [email or web address] Information not available 12/07/2023 Mental Status None recorded. Family History Relationship Description Onset Age of this Age Resolved Age Notes LastModified by Organization Details LastModified Time Mother Heart disease [id number] Not available 01/28/2023 05:53:41 Father Malignant lymphoma [email or web address] Not available 2024 09:16:04 Mother Hypertensive disorder [email or web address] Not available 2023 09:18:03 Mother Complication of anesthesia [email or web address] Not available 05/15 09:16:04 Medical History Condition Response ARTHRITIS Y USE OF NSAIDS Y Gynecological HistoryNo gynecological history recorded. Obstetrics History GPAL:G 0 P 0 0 0 0 Immunizations Vaccine Type Date Status Note Provider Nam e and Address Organization Details Recorded Time DTaP 11/30/2005 completed Not Available [facility] 01/28/2023 06:02:32 Past Encounters Encounter ID Performer Location Encounter Start Date Encounter Closed Date Diagnosis/Indication Diagnosis SNOMED-CT Code Diagnosis ICD10 Code Diagnosis Note [id number] Vianney Foster MD [address] [place] [address] 01/21/2022 00:00:00 01/26/2022 22:25:08 [id number] Vianney Foster MD [address] [place] [address] 04/21/2022 00:00:00 04/21/2022 08:23:46 [id number] Vianney Foster MD [address] [place] [address] 01/21/2023 00:00:00 01/26/2023 16:44:47 [id number] Curtis Pabon MD [facility] [place] [address] [facility] [address] [place] [address] 12/07/2023 09:00:46 12/07/2023 10:18:30 Pain of left hand 4257582264 16801 M79.642 Acquired t moving picture operator finger of left index finger 8753147881 03007 M65.932 [id number] Vianney Foster MD [address] [place] [address] 03/14/2024 15:21:38 03/14/2024 16:19:28 Adult health examination 909204144 Z00.00 Z13.1 Fasting labs up to date Recommende d shingles vaccine Tdap up to date Mammogram order done 07/22 DEXA normal 02/2021 repeat 2025 Cscope done 03/18-repea t 10 years s/p hysterecto my, no pap needed f/u in 1 year Hypothyroidism 82826805 E03.9 was switched to generic levothyrox inerecheck tsh Hyperlipidemia 64052259 E78.5 Vitamin D deficiency 347 07416 E55.9 [facility] 09838004 R 73.9 [id number] Josh Spears MD [facility] [place] [address] [place] [address] 10/11/2024 15:27:38 10/11/2024 15:58:27 Pain in right hand 5326367009 77556 M79.641 Acquired t moving picture operator finger of right index finger 2042828975 83031 M65.321 Acquired t moving picture operator finger of right ring finger 4794510956 58670 M65.065 [id number] ALLY GarciaP-C [facility] Primary Care [facility] [address] [facility] [address] [place] [address] 12/29/2024 16:52:35 12/29/2024 17:16:28 Acute upper respiratory infection 47119066 J06.9 Will treat as listed below, patient will follow up as needed. Acute conjunctivitis 537 39556 H10.32 [id number] Josh Spears MD [facility] [place] [address] [place] [address] 05/15/2025 09:14:35 05/15/2025 09:47:17 Acquired trigger finger of left index finger 3024433592 52899 M65.322 Acquired t moving picture operator finger of right index finger 3662894033 28404 M65.321 Acquired t moving picture operator finger of right ring finger 4971932925 24253 M65.341 Pain in right hand 71915 21484 64853 M79.641 Pain of left hand 946789 0822 89858 M79.642 Health Concerns Section Related Observation LastModified by Organization Detai ls LastModified Time None Recorded Concern Status LastModified by Organization Details LastModified Time None Recorded Advance Directives Directive None Recorded Payers Insurance Date Sequence Insurance Name Policy Number Policy William Covered Member ID William Member ID Guarantor Name 05/28/2025 1 [employer] [id number] Merary Arreguin [id number] Merary Arreguin Notes Date Note Type Note Provider Name and Address Organization Details Recorded Time 12/07/2023 text/html The patient is a 58-year-old female who presents with a 1 year history of triggering in her left index finger. She has pain and tenderness over the A1 igor site. When she wakes up at night sometimes it is locked into a flexed position she demonstrates a triggering snapping sensation with flexion and extension here in the office today. She is tender over the A1 igor site has trouble gripping or grasping going back to daily activities. She does take diclofenac daily which has not helped she has also tried ice and stretching without significant relief. Despite conservative measures over the last year symptoms continue. Denies any weakness no previous trauma or injury no erythema heat effusion or signs of infection. She has a left index trigger finger she states she has had other trigger fingers that have been resolved with cortisone she comes in today for initial evaluation and treatment.Past medical history sheet was reviewed and signed on intake sheet today's date drug allergies current medications family social history previous surgical history 10 point review of systems was reviewed and discussed in detail today with the patient. EKTA Jeffries [address] [address], [place], [address], [employer] 12/07/2023 10:10:24 03/14/2024 text/html here for brenda s exam Vianney Foster MD [address] [facility], [facility] [address], [place], [address], [employer] 04/17/2024 17:43:16 10/11/2024 text/html Patient returns with a new problem today she has 2 trigger fingers on her right hand. I saw her in November of this year for a left index trigger finger she did very well with the shot of cortisone and oral prednisone which fixed the problem she has had no more locking or catching or pain in the flexor tendon sheath on the left hand. Right hand recently has started to bother her, ongoing for several months now, right index finger now has catching and triggering with flexion extension and so does the right ring finger but not quite as bad as the index finger. she denies any trauma or injury to her hand no numbness or tingling or weakness or loss of motion. She does have tenderness at the A1 igor sites of both the fingers and pain with gripping or grasping which interferes with the daily activities. She has tried ice and does take diclofenac daily for her knees but this really has not been helping her hands. Despite conservative measures on her own at home her symptoms continue. She has more pain particularly at night sometimes when she wakes up she has fingers are locked in flexion. She comes in today for initial evaluation and treatment of right index and right ring trigger finger. Her previous medical history was reviewed in detail today with the patient she has noted no changes in her past medical history. EKTA Jeffries [address] [facility], [facility] [address], [place], [address], [employer] [facility] 10/11/2024 16:05:33 12/29/2024 text/html Patient is a 59 year old female that presents to the office for sick visit. Patient reports sinus congestion/pain, T-max 99.6, dyspnea on exertion, productive cough with green sputum and bilateral ear fullness for one week. Patient also reports right eye tearing, redness and discharge for 2 days, denies vision changes. Patient denies chest pain, nausea vomiting and diarrhea. Patient denies sore throat, body aches and fatigue. Patient reports symptoms started when she was on a 14 day cruise and have continued to worsen. Patient took Covid test which was negative. Patient has been taking OTC Mucinex without relief of symptoms. Patient's is sick with similar symptoms however his are less severe. MATTI Garcia [address] [facility], [facility] [address], [place], [address], [employer] 01/04/2025 13:47:37 05/15/2025 text/html The patient returns she has multiple trigger fingers. She has had these injected at least once for each site. She has bilateral index finger triggering as well as right ring finger triggering. She states this bothers her mostly at night if she has a busy day sometimes she will wake up at night with her fingers locked down in flexion the painfully snap back into extension. She states right now the only 1 triggering is basically her right ring finger but the index fingers do have a popping sensation with flexion and extension I can feel these with palpation she is also very tender over the A1 igor sites of each finger. Denies any new problems no new trauma or injury. She last had 2 trigger fingers injected 7 months ago. These worked well until recently. One of the index fingers when she is injected in November of this year this was on the left side. The right hand was done 7 months ago. She comes in today requesting all 3 sites to be injected again today. She states the symptoms limit her daily activities at time she has problems do anything heavy repetitive at night she will have more pain about a 5 on a scale of 1-10. Despite conservative measures on her own at home her symptoms continue. She does take diclofenac 75 mg twice a day. New past medical history sheet was reviewed and signed on the intake sheet of today's date drug allergies current medications family social history previous surgical history 10 point review of systems was reviewed and discussed in detail today with the patient. EKTA Jeffries [address] [facility], [facility] [address], [place], [address], [place] [facility] [employer] [employer] 05/15/2025 10:26:40 OBGyn Episode No OBEpisode recorded.
--- OUTSIDE RECORDS SUMMARY | 2025-06-07 13:11 | XMS_ITS | Clinical Summary ---
Author Organization [facility] Address [address] [place] [address] Care Team Providers Care Sodium Chlorite Operator Name Role Phone Roxi Bell NP Primary Care Provider [phone] Allergies Active Allergy Reactions Criticality Noted Date Comments Levofloxacin Hives High Reaction: Hives, Penicillins Hives High Reaction: Hives, Sulfa (Sulfonamide Antibiotics) Headache Reaction: Headache, Medications calcium carbonate-vitam in D3 500 mg(1,250mg) -400 unit tablet Take according to rjny-add-ozrdol r package directions 0 0 8 Active docusate sodium (STOOL SOFTENER) 250 mg capsule Take according to lypa-hux-hkzzjd r package directions 0 0 8 Active [...] deficiency 04/13/2025 Coronary artery disease invo lving ekuk coronary artery of ek[place] heart without angina pectoris 03/17/2019 Hx of [...] NOS Assessment & Plan (11/20/2022 12:21 PM GUIDE DOMESTIC TOUR): Clinically and biochemically euthyroid. No medication changes. [...] Instructions to patient on taking medication properly Encounters Date Type Department Care Team Description 04/26/2025 Orders Only [facility] Medical [facility] Internal Medicine at [address] [place] [phone] Warner Mckeon MD 04/25/2025 Orders Only [facility] Internal Medicine at [address] [place] [phone] Warner Mckeon MD 04/21/2025 Orders Only [facility] Medical [facility] Internal Medicine at [address] [place] [phone] Warner Mckeon MD 04/13/2025 7:30 AM CDT Office Visit [facility] Internal Medicine at [address] [place] [phone] Roxi Bell NP Physical exam, annual (Primary Dx); Morbid obesity with BMI of 45.0-49.9, adult (HCC); Encounter for screening for malignant neoplasm of breast, unspecified screening modality; Breast cancer screening by mammogram; Post-menopausal; Acquired hypothyroidism; Screening for diabetes mellitus; Vitamin D deficiency; Mixed hyperlipidemia; Dry skin from Last 3 Months Immunizations Immunization Administration Dates Next Due DTaP 11/30/2005 Influenza, Unspecified 04/13/2025(Deferr ed: Patient Refused),11/30/2023(Deferred: Patient Refused) Surgical History Surgery Date Site/Laterality Comments TOTAL ABDOMINAL HYSTERECTOMY W/ BILATERAL SALPINGOOPHORECTOMY Hysterectomy, total abdominal, BSO CORONARY ARTERY BYPASS GRAFT CABG TONSILLECTOMY Tonsillectomy CHOLECYSTECTOMY Cholecystectomy Medical History Medical History Date Comments Disorder of thyroid Thyroid dise ase Hx Other Medical Claustrophobic; Comments: [facility] 09/12/2014 - Family History Medical History Relation Name Comments Lymphoma Father Coronary artery disease Mother [place] nary artery disease; No Known Problems Sister Relation Name Status Comments Father Mother Alive Sister Alive Social History Tobacco Use Types Packs/Day Years [...] on file Legal Sex Female 11:58 PM GUIDE DOMESTIC TOUR Gender Identity Female 09/16/2020 11:56 AM CDT Sexual Orientation Straight 09/16/2020 11 :56 AM CDT Obstetrics History Last Filed Vital Signs Vital Sign Reading [...] 04/13/2025 7:28 AM CDT Plan of Treatment Health Maintenance Due Date Last Done Comments Hepatitis C Screening 1965 Hepatitis B Screening 1984 DTaP/Tdap/Td Vaccine (2 - Tdap) 11/30/2015 11/30/2005 Zoster Vaccine (1 of 2) 2016 Breast Cancer Screening-Mammogram 07/08/2024 07/08/2023, 07/01/2022, 03/27/2021 Covid-19 Vaccine ( season) 2024 02/15/2021, 01/25/2021 Influenza Vaccine (Season Ended) 2025 Depression Screening 04/13/2026 04/13/2025, 09/12/2021, 09/18/2020, Additional history exists Regular Well Visit/Exam 18-64 04/13/2026 04/13/2025 Colon Cancer Screening-Colonoscopy 03/07/2029 03/07/2019, 03/07/2019 Colon Cancer Screening-CT Colonography Discontinued 03/07/2019, 03/07/2019 Colon Cancer Screening-DNA Stool Discontinued 03/07/2019, 03/07/2019 Colon Cancer Screening-FIT Discontinued 03/07/2019, Colon Cancer Screening-Sigmoidoscopy Discontinued 03/07/2019, 03/07/2019 Pneumococcal vaccine <65 Aged Out No longer eligible based on patient's age to complete this topic Procedures Procedure Name Priority Date/Time Associated Diagnosis [...] TSH+Free T4 (03/15/2025 2:36 PM CDT) Blood Result [facility] Provider MD LAB BLOOD ORDERABLES Danyell l Result * Vitamin D 25 hydroxy (03/15/2025 2:36 PM CDT) SCRIBED 25-OH Vitamin D 34 <20 - >30 ng/mL [facility] Blood Result [facility] Provider MD LAB BLOOD ORDERABLES Edit ed Result - Final Performing Organization Address [facility] de Phone Number [facility] * T4, free (03/15/2025 2:36 PM CDT) SCRIBED T4, Free 1.5 0.8 - 1.8 mcg/dL [facility] Blood Result [facility] Provider MD LAB BLOOD ORDERABLES Edit ed Result - Final Performing Organization Address [facility] Co de Phone Number [facility] * BMP - Basic Metabolic Panel (7) (03/15/2025 2:35 PM CDT) Result [facility] Provider MD LAB BLOOD ORDERABLES Edit ed Result - Final Performing Organization Address [facility] Co de Phone Number [facility] * (ABNORMAL) Hemoglobin A1c (03/15/2025 2:34 PM CDT) SCRIBED Hemoglobin A1c 5.9(A) 4.0 - 5.6 % [facility] Blood us Historical Provider MD LAB BLOOD ORDERABLES Edit ed Result - Final [facility] * TSH (03/15/2025) Scribed TSH 1.49 0.40 - 4.50 mcU/mL [facility] Blood 03/15/2025 Roxi Bell [employer] LAB BLOOD ORDERABLES Edited R esult - Final [facility] * HM MAMMOGRAPHY (07/08/2023 2:37 PM CDT) Historical Provider HEALTH MAINTENANCE Final Result * HM COLONOSCOPY (03/07/2019 2:44 PM CDT) Historical Provider HEALTH MAINTENANCE Final Result from Last 3 Months or Most Recently Relevant to Health Maintenance Insurance [place] [place] [facility] Care Teams Sodium Chlorite Operator Relationship Specialty Start Date End Date Roxi Bell NP [address] [facility] [address] [place] [address] PCP - General Internal Medicine 04/13/25
== END 2025-06-07 13:05 | disposition home or self-care (01) ==
LOC: ANHIMG 13:06
PROVIDERS: PCP Nurse Practitioner Family; Visit Provider Nurse Practitioner Family
DX: M85.89 Other specified disorders of bone density and structure, multiple sites (principal); Z78.0 Asymptomatic menopausal state
CPT/HCPCS: 77080

== ENCOUNTER 2025-09-04 15:31 | Outpatient (CLI) | payer BC, SELFPAY ==
--- NOTE | ~2025-09-04 | MM_ITS ---
EXAMINATION: MM screening desmond BI w kennedi HISTORY: Screening TECHNIQUE: Craniocaudal and mediolateral oblique 3-D tomosynthesis images were obtained and synthetic 2-D images were generated. CAD analysis was submitted and interpreted. COMPARISON: Comparison to multiple prior studies sequentially, with oldest reviewed study dated , 11/20/2017 BREAST PARENCHYMAL COMPOSITION: The breasts are almost entirely fatty. FINDINGS: There is no evidence of suspicious mass, calcification, or architectural distortion to suggest malignancy in either breast. IMPRESSION: 1. No mammographic evidence of malignancy. 2. Recommend routine screening mammography in one year. BI-RADS Category 1: Negative Reviewed, dictated and finalized at location B.
== END 2025-09-04 15:32 | disposition home or self-care (01) ==
LOC: ANHFOHIMG 15:31
PROVIDERS: PCP Nurse Practitioner Family; Visit Provider Nurse Practitioner Family
DX: Z12.31 Encounter for screening mammogram for malignant neoplasm of breast (principal)
CPT/HCPCS: 77063; 77067